=== PATIENT | female | born 1960 | race Hispanic/Latino ===

== ENCOUNTER 2017-04-11 11:37 | Emergency (ER) | payer OTHER ==
[~2017-04-11] VITALS: Ht 154.9 cm; Wt 59.9 kg
[2017-04-11 12:26] LABS: ABSOLUTE BASOPHIL COUNT 0 /CUMM (0.0-0.2); ABSOLUTE EOSINOPHIL COUNT 0 /CUMM (0.0-0.7); ABSOLUTE GRANULOCYTE CT 6.4 /CUMM (1.4-6.5); ABSOLUTE LYMPH COUNT 2.2 /CUMM (1.2-3.4); ABSOLUTE MONOCYTE COUNT 0.5 /CUMM (0.10-0.60); BASOPHIL % 0.2 % (0.0-2.0); EOSINOPHIL % 0.3 % (0-5); GRANULOCYTE % 69.5 % (42.2-75.2); HEMATOCRIT 44.6 % (37-47); MEAN CORPUSCULAR HGB 31.2 PG (27.0-31.0); MEAN CORPUSCULAR HGB CONC 33.9 G/DL (33.0-37.0); MEAN CORPUSCULAR VOLUME 91.9 FL (81.0-99.0); PLATELET COUNT 274 /CUMM (130-400); RBC DISTRIBUTION WIDTH 12.4 % (11.5-14.5); RED BLOOD CELL CT 4.86 /CUMM (4.20-5.40); WHITE BLOOD CELL COUNT 9.2 /CUMM (4.8-10.8)
--- NOTE | 2017-04-11 12:36 | ED GI/GU/ABDOMINAL COMPLAINT ---
History of Present Illness General Chief Complaint: General Adult Stated Complaint: "SHE HAS EVERYTHING" PER Source: patient Exam Limitations: no limitations Vital Signs & Intake/Output Vital Signs & Intake/Output Vital Signs Date Time Temp Pulse Resp B/P B/P Pulse O2 O2 Flow FiO2 Mean Ox Delivery Rate 04/11 1618 85 18 165/98 97 Room Air 04/11 1157 97.2 78 20 190/90 100 Room Air Room Air Allergies Coded Allergies: NO KNOWN ALLERGIES (11/03/11) Reconcile Medications Ascorbate Calcium (Vitamin C) (Unknown Strength) TABLET (Unknown Dose) PO DAILY SUPPLEMENT (Reported) Calcium Carbonate/Vitamin D3 (Calcium 500 + D Tablet) (Unknown Strength) TABLET (Unknown Dose) PO DAILY SUPPLEMENT (Reported) Glucosamine Sulfate 2KCL (Glucosamine) (Unknown Strength) TABLET (Unknown Dose ) PO DAILY SUPPLEMENT (Reported) Multiple Vitamin (Multivitamins) 1 EACH TABLET 1 TAB PO DAILY SUPPLEMENT ( Reported) Triage Note: PT TO ED WITH C/O NAUSEA, VOMITING AND LITTLE BIT OF DIARRHEA SINCE LAST NIGHT. Triage Nurses Notes Reviewed? yes ? N Is pt currently ? No Onset: YESTERDAY Duration: day(s):, continues in ED, intermittent Quality/Severity: burning, sharpness, severe Location: LOWER ABD AND BACK Radiation: no radiation Activities at Onset: none HPI: Patient presents for evaluation of severe lower abdominal and back pain that began gradually yesterday. Patient states she can't get comfortable and feels this is similar to a prior kidney stone she has suffered. She is not sure she's had a fever but did have vomiting yesterday and 2 episodes of diarrhea. She denies any associated dysuria. Nothing seems to make her feel better. Past History Travel History Traveled to [place] past 21 day No Medical History Any Pertinent Medical History? see below for history Neurological: NONE EENT: NONE Cardiovascular: NONE Respiratory: NONE Gastrointestinal: NONE Hepatic: NONE Renal: KIDNEY STONE Musculoskeletal: NONE Psychiatric: NONE Endocrine: NONE Blood Disorders: NONE Cancer(s): NONE Surgical History Surgical History: non-contributory Psychosocial History What is your primary language Luxembourgish Tobacco Use: Never used ETOH Use: denies use Illicit Drug Use: denies illicit drug use Family History Hx Contributory? No Review of Systems Review of Systems Constitutional: Reports: no symptoms. EENTM: Reports: no symptoms. Respiratory: Reports: no symptoms. Cardiovascular: Reports: no symptoms. GI: Reports: see HPI. Genitourinary: Reports: no symptoms. Musculoskeletal: Reports: no symptoms. Skin: Reports: no symptoms. Neurological/Psychological: Reports: no symptoms. Hematologic/Endocrine: Reports: no symptoms. Immunologic/Allergic: Reports: no symptoms. All Other Systems: Reviewed and Negative Physical Exam Physical Exam Gastrointestinal: SEE BELOW Comments: Gen.: Well-nourished, well-developed, no acute respiratory distress. Severe distress, writhing, pacing. Head: Normocephalic, atraumatic. Eyes: Normal inspection bilaterally Ears: Normal inspection bilaterally Nose: Normal inspection Throat/mouth : Moist mucosa Neck: Supple, full range of motion, no goiter Lungs: Quiet respirations Back: Normal range of motion Extremities: Normal range of motion grossly, no cyanosis clubbing or edema of the upper extremities Neurologic: Cranial nerves grossly intact, speech is clear Skin: warm and dry, no rashes over the right flank or abdomen Psychiatric: Calm, cooperative, no apparent delusions or hallucinations The remainder of the exam deferred until the patient is more comfortable Core Measures ACS in differential dx? No Sepsis Present: No Sepsis Focused Exam Completed? No Progress Differential Diagnosis: renal colic, biliary colic, appendicitis, ovarian torsion, ovarian cyst Plan of Care: Orders Procedure Date/time Status URINALYSIS 04/11 1200 Complete LIPASE 04/11 1200 Complete COMPREHENSIVE METABOLIC PANEL 04/11 1200 Complete CBC WITHOUT DIFFERENTIAL 04/11 1200 Complete AMYLASE 04/11 1200 Complete Current Medications Sig/Kiana Start time Last Medication Dose Stop Time Status Admin Sodium Chloride 1,000 ML ONCE ONE 04/11 1245 AC 04/11 (Normal Saline 0.9%) 04/11 1924 1244 Laboratory Tests 04/11/17 1610: Urine Color YEL, Urine Clarity CLEAR, Urine pH 7.5, Ur Specific Thornton 1.020, Urine Protein >=300 H, Urine Ketones 15 H, Urine Nitrite NEG, Urine Bilirubin NEG, Urine Urobilinogen 0.2, Ur Leukocyte Esterase NEG, Ur Microscopic SEDIMENT EXAMINED, Urine RBC 5-10 H, Urine WBC RARE, Ur Epithelial Cells RARE, Urine Bacteria RARE H, Urine Mucus RARE, Urine Hemoglobin MOD H, Urine Glucose NEG 04/11/17 1210: Anion Gap 16, Estimated GFR > 60, BUN/Creatinine Ratio 18.6, Glucose 169 H, Calcium 10.1, Total Bilirubin 1.2, AST 38 H, ALT 45, Alkaline Phosphatase 108, Total Protein 8.7 H, Albumin 5.0, Globulin 3.7, Albumin/Globulin Ratio 1.4, Amylase 221 H, Lipase 263, CBC w Diff NO MAN DIFF REQ, RBC 4.86, MCV 91.9, MCH 31.2 H, RDW 12.4, MPV 8.0, Gran % 69.5, Lymphocytes % 24.1, Monocytes % 5.9, Eosinophils % 0.3, Basophils % 0.2, Absolute Granulocytes 6.4, Absolute Lymphocytes 2.2, Absolute Monocytes 0.5, Absolute Eosinophils 0, Absolute Basophils 0, PUBS MCHC 33.9 Diagnostic Imaging: Discussed w/RAD: CT Scan. Radiology Impression: PATIENT: MAYRA LARES PRESENT AGE: 56 PATIENT ACCOUNT NO: [id number] : 61 LOCATION: [facility] ORDERING PHYSICIAN: Marino Estrada MD SERVICE DATE: 04/11/17 EXAM TYPE: CAT - CT ABD & PELVIS W/O IV CONTRAS EXAMINATION: CT ABDOMEN AND PELVIS WITHOUT CONTRAST CLINICAL INFORMATION: Lower abdominal and back pain, similar to prior renal colic. Right greater than left-sided pain. COMPARISON: CT scan of the abdomen and pelvis dated 05/05/2012. TECHNIQUE: Multidetector volumetric imaging was performed from the superior aspect of the liver through the pubic symphysis. Sagittal and coronal reformatted images were obtained on the technologist workstation. DLP: 245.35 mGy-cm. FINDINGS: LUNG BASES: The visualized lung bases are unremarkable. LIVER, GALLBLADDER, AND BILIARY TREE: The liver is normal in size, shape, and attenuation. No focal hepatic lesion on noncontrast imaging. No biliary ductal dilatation is present. The gallbladder is surgically absent. PANCREAS, SPLEEN, ADRENAL GLANDS: Unremarkable on noncontrast imaging. KIDNEYS AND URETERS: The kidneys are normal in size, shape, and attenuation. Again noted is a 0.2 cm nonobstructing lower pole left renal calcification (series 2, image 33), unchanged. No additional renal calculi are seen. No hydronephrosis or hydroureter seen. No ureteral calculi are noted. No perinephric stranding. BLADDER: Well-distended and unremarkable. No bladder calculi seen. PELVIC VISCERA: Uterus is retroverted and otherwise unremarkable. No suspicious adnexal mass. GASTROINTESTINAL TRACT: Mild sigmoid colonic diverticulosis. The small and large bowel are otherwise unremarkable. The appendix is unremarkable. ABDOMINAL WALL: Small fat-containing umbilical hernia is seen. LYMPH NODES, VASCULAR: Unremarkable. OSSEOUS STRUCTURES: Unremarkable. IMPRESSION: 1. Unchanged nonobstructing 0.2 cm lower pole left renal calcification. 2. No new renal calcifications. No evidence of obstructive uropathy. 3. No acute intra-abdominal findings seen. DICTATED BY: Maria Luisa Bingham MD DATE/TIME DICTATED:04/11/171300 [employer]:BRIGHT DATE/TIME TRANSCRIBED:04/11/171300 CONFIDENTIAL, DO NOT COPY WITHOUT APPROPRIATE AUTHORIZATION. <Electronically signed in Other Vendor System> SIGNED BY: Maria Luisa Bingham MD 04/11/17 1316 , PATIENT: MAYRA LARES PRESENT AGE: 56 PATIENT ACCOUNT NO: [id number] : 62 LOCATION: [facility] ORDERING PHYSICIAN: Marino Estrada MD SERVICE DATE: 04/11/17 EXAM TYPE: US - US-TRANSVAGINAL EXAMINATION: US TRANSVAGINAL CLINICAL INFORMATION: Right lower abdominal/flank pain. COMPARISON: CT pelvic angiogram. TECHNIQUE: Routine transvaginal ultrasound of pelvis was performed. FINDINGS: The uterus is retroverted measuring 5.6 cm in length, 3.3 cm in AP and 3.9 cm in transverse dimension. Endometrial thickness is 0.4 cm. The uterus is homogeneous in echo echotexture with small cyst measuring 0.7 x 0.4 x 0.6 cm. No additional lesions seen. Both ovaries are not well visualized. There is no free fluid in the cul-de-sac. IMPRESSION: Small cyst in the uterus likely endometrial cysts. Otherwise the uterus is unremarkable. Both ovaries are not seen. There is no free fluid in the cul-de-sac. DICTATED BY: Severo Verduzco MD DATE/TIME DICTATED:04/11/171807 [employer]:BRIGHT DATE/TIME TRANSCRIBED:04/11/171807 CONFIDENTIAL, DO NOT COPY WITHOUT APPROPRIATE AUTHORIZATION. <Electronically signed in Other Vendor System> SIGNED BY: Severo Verduzco MD 04/11/171817 Initial ED EKG: none Comments: 04/11/2017 3:55:45 PM I updated the Mayra and her family on the noncontrast CAT scan and other test results. Since no clear etiology had been obtained for her severe pain and IV contrast CAT scan was obtained as well which likewise is unrevealing. She continues to complain of pain and it is not clear if she feels comfortable to return home. I have ordered an ultrasound to rule out ovarian torsion and have ordered Dilaudid for pain. 04/11/2017 6:36:49 PM mayra's pain is gone for the time being. Her abdomen is soft and nontender. I have updated her on the ultrasound and urinalysis results. I am paging [facility] to see if they feel that there is any reasonable concern for an ovarian torsion given that the ovaries were not visualized on ultrasound. I have also discussed with Mayra the possibility of a small kidney stone that hasn't been visualized given the blood in the urine. 04/11/2017 6:49:21 PM d/w emma, covering [facility]. She will discuss this case with Dr. Aura Lynn. Departure Departure Disposition: HOME OR SELF CARE Condition: Stable Clinical Impression Primary Impression: Right flank pain Referrals: Tobias AGUILAR,Shad Cantu MD,Kip (PCP/Family) Additional Instructions: Although your evaluation has not come up with a definitive diagnosis, I suspect a very small kidney stone. Ketorolac as needed for pain. Add Percocet if necessary. Zofran as needed for nausea or vomiting. Maintain a good fluid intake. Follow-up with Shad Collado MD tomorrow as discussed for further evaluation of your ovaries. Please also follow-up with your primary care physician for reevaluation tomorrow. Return if any concerns or sudden worsening. Please note that there might be incidental findings in your evaluation that are unrelated to the current emergency department visit. Please notify your primary care doctor about this emergency department visit in order to obtain and review all of the testing performed so that these incidental findings can be monitored as needed. If you had an x-ray performed, please understand that some fractures may not be seen on the initial set of x-rays. If your symptoms persist you might need a repeat set of x-rays to check for such a fracture. If you had a laceration evaluated, please understand that foreign bodies such as glass or wood may not be visible to the naked eye or on plain x-rays. If the wound becomes red, swollen, increasingly more painful or if there is any drainage from the wound, please have it reevaluated by a physician for the possibility of a retained foreign body. If you're unable to follow up as outlined in the discharge instructions please return to the emergency department. Thank you for choosing the [facility] Emergency Department for your care. It was a pleasure to serve you today. Marino Estrada M.D. [facility] Departure Forms: Customer Survey General Discharge Information Prescriptions: Current Visit Scripts Oxycodone HCl/Acetaminophen (Percocet 5-325 MG Tablet) 1-2 TAB PO Q6P PRN pain #16 TAB Ketorolac Tromethamine 1 TAB PO Q6P PRN pain #16 TAB patient treated with IV ketorolac in the emergency department Ondansetron (Zofran Odt) 1 TAB SL Q6P PRN NAUSEA OR VOMITING #10 TAB
[2017-04-11] MEDS ORDERED: GLUCOSAMINE1000 MG PO (12:46)
[2017-04-11] MEDS ORDERED: CALCIUM 500 +1 EAC5 PO (12:47)
[2017-04-11] MEDS ORDERED: VITAMIN C500 M6 PO (12:47)
[2017-04-11] MEDS ORDERED: MULTIVITAMINS1 EAC9 PO (12:47)
--- NOTE | 2017-04-11 13:16 | CT SCAN REPORT ---
EXAMINATION: CT ABDOMEN AND PELVIS WITHOUT CONTRAST CLINICAL INFORMATION: Lower abdominal and back pain, similar to prior renal colic. Right greater than left-sided pain. COMPARISON: CT scan of the abdomen and pelvis dated 05/05/2012. TECHNIQUE: Multidetector volumetric imaging was performed from the superior aspect of the liver through the pubic symphysis. Sagittal and coronal reformatted images were obtained on the technologist workstation. DLP: 245.35 mGy-cm. FINDINGS: LUNG BASES: The visualized lung bases are unremarkable. LIVER, GALLBLADDER, AND BILIARY TREE: The liver is normal in size, shape, and attenuation. No focal hepatic lesion on noncontrast imaging. No biliary ductal dilatation is present. The gallbladder is surgically absent. PANCREAS, SPLEEN, ADRENAL GLANDS: Unremarkable on noncontrast imaging. KIDNEYS AND URETERS: The kidneys are normal in size, shape, and attenuation. Again noted is a 0.2 cm nonobstructing lower pole left renal calcification (series 2, image 33), unchanged. No additional renal calculi are seen. No hydronephrosis or hydroureter seen. No ureteral calculi are noted. No perinephric stranding. BLADDER: Well-distended and unremarkable. No bladder calculi seen. PELVIC VISCERA: Uterus is retroverted and otherwise unremarkable. No suspicious adnexal mass. GASTROINTESTINAL TRACT: Mild sigmoid colonic diverticulosis. The small and large bowel are otherwise unremarkable. The appendix is unremarkable. ABDOMINAL WALL: Small fat-containing umbilical hernia is seen. LYMPH NODES, VASCULAR: Unremarkable. OSSEOUS STRUCTURES: Unremarkable. IMPRESSION: 1. Unchanged nonobstructing 0.2 cm lower pole left renal calcification. 2. No new renal calcifications. No evidence of obstructive uropathy. 3. No acute intra-abdominal findings seen.
--- NOTE | 2017-04-11 15:43 | CT SCAN REPORT ---
EXAMINATION: CT ANGIOGRAM ABDOMEN AND PELVIS CLINICAL INFORMATION: 56-year-old woman presenting with sharp burning pain in the lower abdomen and back. History of hypertension. COMPARISON: CT of the abdomen pelvis without oral or intravenous contrast performed earlier today. TECHNIQUE: Multiple axial images were obtained through the abdomen and pelvis following the administration of 100 mL of Ultravist 300. Images were reviewed on a dedicated 3-D workstation. FINDINGS: Vascular: The abdominal aorta and iliac arteries are smooth and normal in caliber with no significant calcific atherosclerotic changes. There is no evidence of a dissection flap or penetrating ulcer. The celiac, superior mesenteric, and inferior mesenteric arteries are widely patent. There are single renal arteries present bilaterally without evidence of stenoses. No visceral artery aneurysm or dissection is identified. Nonvascular: The lung bases are clear. There is no evidence of a pleural or pericardial effusion. Note is made of a small hiatal hernia. The liver has a normal size, contour, attenuation. There is no dilatation of the biliary ducts. The gallbladder is absent. The adrenal glands are normal in configuration bilaterally. No pancreatic mass, ductal ectasia, inflammatory changes are seen. The spleen is not enlarged there is no evidence of a splenic parenchymal lesion. Both kidneys are normal in size and contour appropriate enhancement. There is a 2 mm nonobstructing calyceal calculus in the lower pole of the left kidney. The bowel is normal in caliber and distribution. A normal appendix is seen in the right lower quadrant. There is no evidence of diverticular disease. No adenopathy is seen. Urinary bladder, uterus, and other pelvic organs are within normal in appearance. There is no evidence of a pelvic mass, focal collection, or free fluid. No abdominal wall hernias are identified. There is no evidence of a vertebral compression fracture. No focal osteolytic or osteoblastic changes are identified. The disc are normal in width. No paraspinal inflammatory changes are identified. IMPRESSION: 1. No evidence of an aortic dissection, penetrating ulcer, or aneurysm. 2. No abnormality identified of the abdominal visceral arteries. 3. No evidence of a mass or active inflammatory process in the abdomen or pelvis. 4. No pathology identified of the spine.
--- NOTE | 2017-04-11 18:18 | ULTRASOUND REPORT ---
EXAMINATION: US TRANSVAGINAL CLINICAL INFORMATION: Right lower abdominal/flank pain. COMPARISON: CT pelvic angiogram. TECHNIQUE: Routine transvaginal ultrasound of pelvis was performed. FINDINGS: The uterus is retroverted measuring 5.6 cm in length, 3.3 cm in AP and 3.9 cm in transverse dimension. Endometrial thickness is 0.4 cm. The uterus is homogeneous in echo echotexture with small cyst measuring 0.7 x 0.4 x 0.6 cm. No additional lesions seen. Both ovaries are not well visualized. There is no free fluid in the cul-de-sac. IMPRESSION: Small cyst in the uterus likely endometrial cysts. Otherwise the uterus is unremarkable. Both ovaries are not seen. There is no free fluid in the cul-de-sac.
[2017-04-11 19:10] VITALS: BP 158/90
[2017-04-11] MEDS ORDERED: ZOFRAN ODT4 M1 SL (19:10)
[2017-04-11] MEDS ORDERED: KETOROLAC TROME10 M1 PO (19:10)
[2017-04-11] MEDS ORDERED: PERCOCET 5-3251 EACH PO (19:10)
== END 2017-04-11 19:17 ==
LOC: ERH 11:37
PROVIDERS: Emergency Medicine
DX: R10.31 Right lower quadrant pain (principal)
CPT/HCPCS: 74175; 74176; 81001; J1885; J2405